=== PATIENT | male | born 1980 ===

== ENCOUNTER 2021-04-09 03:55 | Emergency (ER) | payer BC ==
[2021-04-09 04:10] VITALS: BP 129/84; PULSE 66; RESP 16; TEMP 97.9
== END 2021-04-09 05:10 | disposition home or self-care (01) ==
LOC: EC 03:55
DX: Z11.52 Encounter for screening for COVID-19 (principal); Z20.822 Contact with and (suspected) exposure to COVID-19
CPT/HCPCS: 87635; 99282